=== PATIENT | male | born 1950 | race Caucasian/White ===

== ENCOUNTER 2021-07-28 17:25 | Inpatient (IN) ==
[2021-07-28] MEDS ORDERED: Isovue-370 500 ML BOTTLE IVP ONE (18:01)
[2021-07-28 18:34] LABS: Basophils # 0.1 K/mcL (0.0-0.2); Basophils % 0.7 %; Eosinophils # 0.1 K/mcL (0.0-0.6); Eosinophils % 0.8 %; Hemoglobin 12.2 g/dL (12.9-16.9); Immature Granulocytes % 0.8 % (0-4); Lymphocytes # 0.6 K/mcL (0.6-4.6); Lymphocytes % 5.7 %; Mean Corpuscular Hemoglobin 31.7 pg (28.0-33.3); Mean Corpuscular Volume 96.1 fL (83.0-100.0); Mean Platelet Volume 10.7 fL (9.4-12.4); Monocytes # 1.2 K/mcL (0.0-1.3); Monocytes % 11.8 %; Neutrophils # 8.1 K/mcL (1.6-8.9); Platelet Count 297 K/mcL (140-400); Red Blood Count 3.85 M/mcL (4.19-5.50); Red Cell Distribution Width 16.4 % (11.5-14.5); Segmented Neutrophils % 80.2 %
[2021-07-28 18:47] LABS: INR 1.2; Prothrombin Time 13.7 Seconds (9.4-12.1)
[2021-07-28 18:49] LABS: Activated Partial Thrombo Time 32.4 Seconds (26.0-36.0)
[2021-07-28 18:59] LABS: Alanine Aminotransferase 26 Units/L (7-52); Albumin/Globulin Ratio 1.3 (1.1-2.2); Alkaline Phosphatase 124 Units/L (34-104); Aspartate Amino Transferase 73 Units/L (13-39); BUN/Creatinine Ratio 8 (6-26); Bilirubin,Direct 0.2 mg/dL (0.0-0.2); Bilirubin,Indirect 0.4 mg/dL (0.0-1.0); Bilirubin,Total 0.6 mg/dL (0.3-1.0); Blood Urea Nitrogen 68 mg/dL (8-23); Calcium 9.9 mg/dL (8.6-10.3); Carbon Dioxide 23 mEq/L (23-29); Chloride 96 mEq/L (98-107); Glucose 103 mg/dL (70-105); Lipase 15 Units/L (11-82); Osmolality,Calculated 304 (280-300); Potassium 4.4 mEq/L (3.5-5.1); Sodium 137 mEq/L (136-145); Troponin I < 0.03 ng/mL (< 0.04); eGFR For African Americans 8 (> 60); eGFR For Non-African Americans 6 (> 60)
[2021-07-28] MEDS ORDERED: Morphine Sulfate 2 MG/ML SYRINGE IVP ONE (19:58)
[2021-07-28] MEDS ORDERED: 0.9 % Sodium Chloride 1,000 ML IV ONE (20:47)
[2021-07-28] MEDS ORDERED: Ondansetron 4 MG/2 ML VIAL IVP PRN (21:48)
[2021-07-28] MEDS ORDERED: Naloxone 0.4 MG/ML INJ IVP PRN (21:48)
[2021-07-28] MEDS ORDERED: Acetaminophen 325 MG TABLET PO PRN (21:48)
[2021-07-28] MEDS: 0.9 % Sodium Chloride 1,000 ML IVC SCH (22:53)
[2021-07-29 00:08] LABS: Amorphous Sediment,Urine Few per hpf (None-Few); Bacteria,Urine Few per hpf (None-Few); Bilirubin,Urine Negative (Negative); Blood,Urine Negative (Negative); Clarity,Urine Turbid (Clear); Color,Urine Yellow (Yellow); Glucose,Urine (UA) Normal (Normal); Hyaline Casts,Urine Many per lpf (None Seen); Ketones,Urine Negative (Negative); Leukocyte Esterase,Urine Negative (Negative); Mucus,Urine Few per lpf (None-Few); Nitrite,Urine Negative (Negative); Protein,Urine 50 mg/dL (Neg-Trace); RBC,Urine 0-3 per hpf (0-3); Specific Gravity,Urine 1.023 (1.010-1.025); Squamous Epithelial Cell,Urine Few per hpf (None-Few); Urobilinogen,Urine Normal (Normal)
[2021-07-29 00:35] LABS: Chloride,Urine < 15 mEq/L; Potassium,Urine 62.8 mEq/L
[2021-07-29 05:11] LABS: Basophils % 0.4 %; Eosinophils % 0.5 %; Hematocrit 34.6 % (37.5-50.1); Hemoglobin 11.1 g/dL (12.9-16.9); Lymphocytes # 0.4 K/mcL (0.6-4.6); Lymphocytes % 5.2 %; Mean Corpuscular HGB Conc 32.1 g/dL (31.6-35.5); Mean Corpuscular Hemoglobin 31.1 pg (28.0-33.3); Mean Corpuscular Volume 96.9 fL (83.0-100.0); Mean Platelet Volume 10.2 fL (9.4-12.4); Monocytes # 0.8 K/mcL (0.0-1.3); Monocytes % 10.7 %; Platelet Count 243 K/mcL (140-400); Red Blood Count 3.57 M/mcL (4.19-5.50); Red Cell Distribution Width 16.4 % (11.5-14.5); Segmented Neutrophils % 82.2 %; White Blood Count 7.3 K/mcL (4.3-11.1)
[2021-07-29] MEDS: *HR* Heparin 5,000 UNIT/ML VIAL SQ SCH ×3 (05:23→22:00)
[2021-07-29 05:31] LABS: Albumin 3.5 g/dL (3.5-5.7); Albumin/Globulin Ratio 1.3 (1.1-2.2); Bilirubin,Direct 0.1 mg/dL (0.0-0.2); Bilirubin,Indirect 0.3 mg/dL (0.0-1.0); Bilirubin,Total 0.4 mg/dL (0.3-1.0); Globulin 2.7 g/dL (2.4-3.5); Magnesium 2.3 mg/dL (1.6-2.6); Phosphorous 9.4 mg/dL (2.7-4.5); Potassium 4.8 mEq/L (3.5-5.1); Total Protein 6.2 g/dL (6.4-8.9)
[2021-07-29 05:32] LABS: INR 1.3; Prothrombin Time 14.1 Seconds (9.4-12.1)
[2021-07-29] MEDS ORDERED: Ringers Solution, Lactated 2,000 ML IVC ONE (07:30)
[2021-07-29] MEDS: 0.9 % Sodium Chloride 1,000 ML IVC SCH (07:31)
[2021-07-29] MEDS ORDERED: Morphine Sulfate ER (12 HR) 30 MG TABLET.ER PO SCH (09:30)
[2021-07-29] MEDS ORDERED: *HR* OxyCODONE Immed Rel 5 MG TABLET PO PRN ×2 (09:45→12:32)
[2021-07-29] MEDS: Nystatin POWDER 30 GM BOTTLE TP SCH ×2 (15:24→20:00)
[2021-07-29] MEDS: *HR* OxyCODONE ER (12 HR) 10 MG TABLET PO SCH (18:13)
[2021-07-30] MEDS: Ringers Solution, Lactated 1,000 ML IVC SCH ×4 (01:34→17:09)
[2021-07-30] MEDS: *HR* OxyCODONE ER (12 HR) 10 MG TABLET PO SCH (05:13)
[2021-07-30] MEDS: *HR* Heparin 5,000 UNIT/ML VIAL SQ SCH (05:17)
[2021-07-30 06:31] LABS: Hematocrit 28.8 % (37.5-50.1); Hemoglobin 9.7 g/dL (12.9-16.9); Mean Corpuscular HGB Conc 33.7 g/dL (31.6-35.5); Mean Corpuscular Hemoglobin 32.4 pg (28.0-33.3); Mean Corpuscular Volume 96.3 fL (83.0-100.0); Mean Platelet Volume 10.7 fL (9.4-12.4); Platelet Count 219 K/mcL (140-400); Red Blood Count 2.99 M/mcL (4.19-5.50); Red Cell Distribution Width 16.6 % (11.5-14.5); White Blood Count 5.9 K/mcL (4.3-11.1)
[2021-07-30 06:38] LABS: Calcium 8.7 mg/dL (8.6-10.3); Potassium 4.3 mEq/L (3.5-5.1)
[2021-07-30] MEDS: Nystatin POWDER 30 GM BOTTLE TP SCH ×3 (08:23→20:50)
[2021-07-30] MEDS ORDERED: Aspirin Enteric Coated 81 MG Tablet PO SCH (09:00)
[2021-07-30] MEDS ORDERED: Ringers Solution, Lactated 1,000 ML IVC ONE (09:14)
[2021-07-30 11:09] LABS: Uric Acid 11.8 mg/dL (2.3-7.6)
[2021-07-30] MEDS ORDERED: Acetaminophen IV 1,000 MG/100 ML BAG IVPB ONE (11:29)
[2021-07-30] MEDS ORDERED: Gabapentin 100 MG CAPSULE PO SCH (11:45)
[2021-07-30] MEDS ORDERED: *HR* OxyCODONE Immed Rel 5 MG TABLET PO PRN (13:48)
[2021-07-30] MEDS: Finasteride 5 MG TABLET PO SCH (14:03)
[2021-07-30] MEDS: Morphine Sulfate ER (12 HR) 15 MG TABLET.ER PO SCH ×2 (14:06→18:04)
[2021-07-30] MEDS: *HR* LORazepam Oral Conc 2 MG/ML SL PRN (19:35)
[2021-07-31] MEDS: Morphine Sulfate ER (12 HR) 15 MG TABLET.ER PO SCH (06:32)
[2021-07-31] MEDS: Nystatin POWDER 30 GM BOTTLE TP SCH ×3 (08:08→22:37)
[2021-07-31] MEDS: Ringers Solution, Lactated 1,000 ML IVC SCH ×3 (08:08→19:54)
[2021-07-31] MEDS: Finasteride 5 MG TABLET PO SCH (08:08)
[2021-07-31] MEDS: *HR* LORazepam Oral Conc 2 MG/ML SL PRN ×2 (10:47→16:19)
[2021-07-31] MEDS ORDERED: *HR* FentaNYL PATCH 25 MCG PATCH TD SCH (14:45)
[2021-07-31] MEDS ORDERED: Sennosides/Docusate Sodium TABLET PO PRN (15:29)
[2021-07-31] MEDS ORDERED: Haloperidol Oral Conc 10 MG/5 ML UDC PO PRN (15:58)
[2021-07-31] MEDS ORDERED: Morphine Sulfate ER (12 HR) 30 MG TABLET.ER PO SCH (18:00)
[2021-08-01] MEDS ORDERED: *HR* FentaNYL PATCH 25 MCG PATCH TD SCH (01:15)
[2021-08-01] MEDS: Ringers Solution, Lactated 1,000 ML IVC SCH (02:36)
[2021-08-01] MEDS: Finasteride 5 MG TABLET PO SCH (07:51)
[2021-08-01] MEDS: *HR* LORazepam Oral Conc 2 MG/ML SL PRN ×3 (07:51→19:41)
[2021-08-01 07:54] VITALS: BP 147/90; PULSE 80; TEMP 97.4
[2021-08-01] MEDS: Nystatin POWDER 30 GM BOTTLE TP SCH ×3 (07:59→22:38)
[2021-08-01] MEDS ORDERED: *HR* FentaNYL PATCH 12 MCG PATCH TD SCH (09:00)
[2021-08-01] MEDS ORDERED: QUEtiapine Fumarate 25 MG TABLET PO ONE (09:55)
[2021-08-01] MEDS ORDERED: Haloperidol Oral Conc 10 MG/5 ML UDC PO PRN (12:03)
[2021-08-01] MEDS: Haloperidol Oral Conc 10 MG/5 ML UDC PO SCH ×3 (13:22→23:10)
[2021-08-02] MEDS: Haloperidol Oral Conc 10 MG/5 ML UDC PO SCH ×3 (05:04→11:20)
[2021-08-02] MEDS: Nystatin POWDER 30 GM BOTTLE TP SCH (07:47)
[2021-08-02] MEDS: Finasteride 5 MG TABLET PO SCH (07:59)
[2021-08-02] MEDS: *HR* LORazepam Oral Conc 2 MG/ML SL PRN (07:59)
[2021-08-02 09:00] VITALS: O2SAT 93
[2021-08-04] MEDS ORDERED: *HR* FentaNYL PATCH 25 MCG PATCH TD SCH (09:00)
== END 2021-08-02 14:59 | disposition hospice, home (50) | DRG 682 ==
LOC: EMEROOARM 17:25 → SUATTDRO 21:56 → 2ANU 21:56
PROVIDERS: ADMIT Student in an Organized Health Care Education/Training Program; ATTEND Internal Medicine